=== PATIENT | female | born 1955 | race Caucasian/White ===

== ENCOUNTER 2018-07-25 22:59 | Emergency (ER) | payer OTHER ==
[2018-07-26 00:40] LABS: Urine Blood 2+ (NEG); Urine Glucose 3+ (NEG); Urine Protein TRACE (NEG)
[2018-07-26 00:45] LABS: Urine Bacteria >50 /HPF (<20); Urine Culture Reflex Order REFLEXED; Urine Mucus HEAVY /HPF (NONE SEEN)
--- NOTE | 2018-07-26 01:07 | EDPHYS ---
Physician Documentation [facility] Name: Mary Carmen Rawls Age: 63 yrs Sex: Female : 1955 Arrival Date: 07/25/2018 Time: 23:00 Bed 27 Private MD: Gal King T ED Physician Nico Mccullough HPI: 07/26 00:51 This 63 yrs old Female presents to ER via Ambulatory with complaints of Pain gs With Urination. 00:51 The patient presents with urinary symptoms, dysuria, frequency, urgency. Onset: The gs symptoms/episode began/occurred yesterday. Modifying factors: The symptoms are alleviated by nothing, the symptoms are aggravated by nothing. Associated signs and symptoms: Pertinent negatives: fever, hematuria. Severity of symptoms: At their worst the symptoms were moderate, in the emergency department the symptoms are unchanged. The patient has experienced similar episodes in the past, several times. The patient has not recently seen a physician. Historical: - Allergies: 07/25 23:25 Phenobarbital; mg2 - Home Meds: 23:25 None [Active]; mg2 - PMHx: 23:25 Diabetes - NIDDM; mg2 - PSHx: 23:25 C SECTION; Hysterectomy; HAND SURGERY; mg2 - Immunization history:: Flu vaccine is not up to date. - Social history:: Smoking status: Patient/guardian denies using tobacco, Patient/guardian denies using alcohol, street drugs, IV drugs. - Ebola Screening: : No symptoms or risks identified at this time. ROS: 07/26 00:51 All other systems are negative. gs Exam: 00:51 Head/Face: Normocephalic, atraumatic. Eyes: Pupils equal round and reactive to light, gs extra-ocular motions intact. Lids and lashes normal. Conjunctiva and sclera are non-icteric and not injected. Cornea within normal limits. Periorbital areas with no swelling, redness, or edema. ENT: Nares patent. No nasal discharge, no septal abnormalities noted. Tympanic membranes are normal and external auditory canals are clear. Oropharynx with no redness, swelling, or masses, exudates, or evidence of obstruction, uvula midline. Mucous membranes moist. Neck: Trachea midline, no thyromegaly or masses palpated, and no cervical lymphadenopathy. Supple, full range of motion without nuchal rigidity, or vertebral point tenderness. No Meningismus. Chest/axilla: Normal chest wall appearance and motion. Nontender with no deformity. No lesions are appreciated. Cardiovascular: Regular rate and rhythm with a normal S1 and S2. No gallops, murmurs, or rubs. Normal PMI, no JVD. No pulse deficits. Respiratory: Lungs have equal breath sounds bilaterally, clear to auscultation and percussion. No rales, rhonchi or wheezes noted. No increased work of breathing, no retractions or nasal flaring. Back: No spinal tenderness. No costovertebral tenderness. Full range of motion. Skin: Warm, dry with normal turgor. Normal color with no rashes, no lesions, and no evidence of cellulitis. MS/ Extremity: Pulses equal, no cyanosis. Neurovascular intact. Full, normal range of motion. Neuro: Awake and alert, GCS 15, oriented to person, place, time, and situation. Cranial nerves II-XII grossly intact. Motor strength 5/5 in all extremities. Sensory grossly intact. Cerebellar exam normal. Normal gait. 00:51 Constitutional: The patient appears alert, awake. 00:51 Abdomen/GI: Palpation: mild abdominal tenderness, in the suprapubic area, rebound tenderness, is not appreciated. Vital Signs: 07/25 23:25 BP 162 / 85; Pulse 72; Resp 18; Temp 98.6(O); Pulse Ox 97% on R/A; Weight 77.11 kg; mg2 Height 5 ft. 2 in. (157.48 cm); Pain 10/10; 07/26 01:25 BP 150 / 70; Pulse 70; Resp 18; Pulse Ox 100% on R/A; Pain 0/10; mg2 07/25 23:25 Body Mass Index 31.09 (77.11 kg, 157.48 cm) mg2 MDM: 00:17 Patient medically screened. pm1 00:51 Data reviewed: vital signs, nurses notes. 01:05 Differential diagnosis: urinary tract infection. Response to treatment: the patient's symptoms have markedly improved after treatment, and as a result, I will discharge patient. 07/25 23:41 Order name: Urine Microscopic Only; Complete Time: 00:46 gs 07/25 23:55 Order name: Urine Dipstick--Ancillary (enter results); Complete Time: 00:46 rg2 07/25 23:41 Order name: Urine Dipstick-Ancillary (obtain specimen); Complete Time: 23:47 07/26 00:47 Order name: Urine Culture EDME Administered Medications: 01:16 Drug: KeFLEX 1000 mg Route: PO; mg2 01:22 Follow up: Response: No adverse reaction; Medication administered at discharge. mg2 Disposition: 07/26/18 01:06 Discharged to Home. Impression: Cystitis. - Condition is Stable. - Prescriptions for Keflex 500 mg Oral Capsule - take 1 capsule by ORAL route every 12 hours for 7 days; 14 capsule. - Medication Reconciliation Form, Thank You Letter, Antibiotic Education, Prescription Opioid Use form. - Follow up: Private Physician; When: 2 - 3 days; Reason: Re-evaluation by your physician. Signatures: Dispatcher [employer] EDME Danielito Conteh, JANETTE [employer] CONSULTANT pm1 Nico Mccullough MD MD Harshil Welch RN RN mg2 Corrections: (The following items were deleted from the chart) 01:26 01:06 07/26/2018 01:06 Discharged to Home. Impression: Cystitis. Condition is Stable. mg2 Forms are Medication Reconciliation Form, Thank You Letter, Antibiotic Education, Prescription Opioid Use. Follow up: Private Physician; When: 2 - 3 days; Reason: Re-evaluation by your physician.
--- NOTE | 2018-07-26 01:07 | ER ---
Nurse's Notes [facility] Name: Mary Carmen Rawls Age: 63 yrs Sex: Female : 1955 Arrival Date: 07/25/2018 Time: 23:00 Bed 27 Private MD: Gal King T Diagnosis: Cystitis Presentation: 07/25 23:22 Presenting complaint: Patient states: had burning micturition for 2 days. She had mg2 history of UTI before. She took 3 amoxicillin and azo already. Transition of care: patient was not received from another setting of care. Onset of symptoms was July 24, 2018. Risk Assessment: Do you want to hurt yourself or someone else? Patient reports no desire to harm self or others. Initial Sepsis Screen: Does the patient meet any 2 criteria? No. Patient's initial sepsis screen is negative. Does the patient have a suspected source of infection? No. Patient's initial sepsis screen is negative. Care prior to arrival: None. 23:22 Method Of Arrival: Ambulatory mg2 23:22 Acuity: ANILA 3 mg2 Historical: - Allergies: 23:25 Phenobarbital; mg2 - Home Meds: 23:25 None [Active]; mg2 - PMHx: 23:25 Diabetes - NIDDM; mg2 - PSHx: 23:25 C SECTION; Hysterectomy; HAND SURGERY; mg2 - Immunization history:: Flu vaccine is not up to date. - Social history:: Smoking status: Patient/guardian denies using tobacco, Patient/guardian denies using alcohol, street drugs, IV drugs. - Ebola Screening: : No symptoms or risks identified at this time. Screenin:25 Abuse screen: Denies threats or abuse. Denies injuries from another. Nutritional mg2 screening: No deficits noted. Tuberculosis screening: No symptoms or risk factors identified. Fall Risk None identified. Assessment: 23:54 General: Appears in no apparent distress. comfortable, Behavior is calm, cooperative. mg2 Pain: Complains of pain in suprapubic Pain does not radiate. Pain currently is 10 out of 10 on a pain scale. Quality of pain is described as aching, Pain began gradually, Is intermittent, Alleviated by medications, rest. Neuro: Level of Consciousness is awake, alert, obeys commands, Oriented to person, place, time, situation. Cardiovascular: Capillary refill < 3 seconds Patient's skin is warm and dry. Respiratory: Airway is patent Respiratory effort is even, unlabored, Respiratory pattern is regular, symmetrical. GI: No signs and/or symptoms were reported involving the gastrointestinal system. : Urine is orange colored-she took Azo. EENT: No signs and/or symptoms were reported regarding the EENT system. Derm: Skin is intact, Skin is pink, warm \T\ dry. normal. Musculoskeletal: Circulation, motion, and sensation intact. 07/26 00:07 Reassessment: Patient appears in no apparent distress at this time. Patient and/or mg2 family updated on plan of care and expected duration. Pain level reassessed. Patient is alert, oriented x 3, equal unlabored respirations, skin warm/dry/pink. Vital Signs: 07/25 23:25 BP 162 / 85; Pulse 72; Resp 18; Temp 98.6(O); Pulse Ox 97% on R/A; Weight 77.11 kg; mg2 Height 5 ft. 2 in. (157.48 cm); Pain 10/10; 07/26 01:25 BP 150 / 70; Pulse 70; Resp 18; Pulse Ox 100% on R/A; Pain 0/10; mg2 07/25 23:25 Body Mass Index 31.09 (77.11 kg, 157.48 cm) mg2 ED Course: 07/25 23:00 Patient arrived in ED. ds1 23:00 Gal King MD is Private Physician. ds1 23:22 Harshil Welch, AYANNA is Primary Nurse. mg2 23:24 Triage completed. mg2 23:25 Patient has correct armband on for positive identification. mg2 23:49 No provider procedures requiring assistance completed. Urine collected: clean catch mg2 specimen, orange colored- she took AZO. 23:56 Arm band placed on. mg2 07/26 00:17 Danielito Conteh NP is PHCP. pm1 00:17 Nico Mccullough MD is Attending Physician. pm1 01:25 Patient did not have IV access during this emergency room visit. mg2 Administered Medications: :16 Drug: KeFLEX 1000 mg Route: PO; mg2 :22 Follow up: Response: No adverse reaction; Medication administered at discharge. mg2 Outcome: 01:06 Discharge ordered by . gs 01:25 Discharged to home ambulatory, with family. mg2 :25 Condition: stable 01:25 Discharge instructions given to patient, family, Instructed on discharge instructions, follow up and referral plans. medication usage, Demonstrated understanding of instructions, follow-up care, medications, Prescriptions given X 1. 01:26 Patient left the ED. mg2 Addendum: 07/30/2018 18:36 Addendum: Culture Results: Positive urine culture. Bacteria is resistant to, has i w intermediate sensitivity, or is not tested against prescribed antibiotics. Report given to SAM for further evaluation and then to veneer splicer for follow up with patient. Phone call Attempt #1 pt did not answer, unable to leave voicemail. Signatures: Emiliana Chacko ds1 Pamela Yoder, AYANNA RN iw Danielito Conteh, JANETTE S[employer] INSPECTOR pm1 Nico Mccullough MD MD gs Harshil Welch RN RN mg2
[2018-07-26] MEDS ORDERED: CEPHALEXIN 250 MG CAP ONE (01:19)
[2018-07-26 01:35] VITALS: TEMP 98.6
[2018-07-26 01:36] VITALS: BP 150/70; O2SAT 100
== END 2018-07-26 01:26 | disposition home or self-care (01) ==
LOC: ER 22:59
DX: N30.90 Cystitis, unspecified without hematuria (principal); E11.9 Type 2 diabetes mellitus without complications; Z88.5 Allergy status to narcotic agent
CPT/HCPCS: 81003; 81015; 87077; 87086; 87088; 87186; 99283

== ENCOUNTER 2020-03-31 16:01 | Emergency (ER) | payer OTHER ==
--- OUTSIDE RECORDS SUMMARY | 2020-03-31 16:04 | XMS REPORT ---
:1955 Author Organization [facility] t Address [address] [place] [address] Care Team Providers Name Role Phone Unavailable Unavailable Unavailable Problems Condition Condition Condition Status Onset Resolution Last Treating Co mments Source Name Details Category Date Date Treatment Clinician Date Uncontroll Uncontroll Diagnosis Active [facility] ed type 2 ed type 2 [facility] - diabetes diabetes Memori a mellitus mellitus l [facility] hyperglyce hyperglyce en t [facility] Clinics Elevated Elevated Diagnosis Active [facility] BP without BP without Renuka kes - diagnosis diagnosis Luis Carlos bethany of of l hypertensi hypertensi Ou tpati on on ent Clinics Left-sided Left-sided Problem Active [facility] low back low back [facility] - pain pain Memoria without without l sciatica, sciatica, Outp ati unspecifie unspecifie en t d d Clinics chronicity chronicity Hyperlipid Hyperlipid Diagnosis Active [facility] emia, emia, [facility] - unspecifie unspecifie Me moria d d l hyperlipid hyperlipid Ou tpati emia type emia type ent Clinics Abnormal Abnormal Problem Active [facility] t heart heart [facility] - rhythm rhythm Memoria l [facility] ent Clinics Paresthesi Paresthesi Problem Active [facility] as as [facility] - [facility]oria l [facility] ent Clinics Chronic Chronic Problem Active [facility] diarrhea diarrhea [facility] - [facility] l [facility] Urinary Urinary Problem Active [facility] incontinen incontinen Renuka kes - ce, ce, Memoria unspecifie unspecifie l d type d type [facility] ent Clinics Depression Depression Diagnosis Active [facility] , , [facility] - unspecifie unspecifie Me moria d d l depression depression Ou tpati type type ent Clinics Forgetfuln Forgetfuln Diagnosis Active [facility] ess ess [facility] - Memoria l [facility] Clinics Depression Depression Diagnosis Active [facility] screening screening Luke s - Memoria l [facility] ent Clinics Allergies, Adverse Reactions, Alerts Allergy Allergy Status Severity Reaction(s) Onset Inactive Treating Comm ents Source Name Type Date Date Clinician Phenobar Adverse Active stop [facility] bital Reaction breathing [facility] - [facility] ent Clinics Medications Ordered Filled Start Stop Current Ordering Indication Dosage Frequency Signature Comments Components Source Medication Medication Date Date Medication? Clinician (SIG) Name Name Paroxetine Paroxetine Yes Monica [address] [facility] HCl HCl 4-22 Mill[facility] in the [facility] - 00:00: morning Memoria 00 Outpati ent Clinics Januvia Januvia Yes Monica [address] 1[facility]03 Millender [facility] - [facility]: [facility] Meloxicam Meloxicam 2019- No Monica 1/[address] 1-03 05-03 Millender tablet [facility] - 00:00: 00:00 Memoria 00 :00 Outpati ent Clinics [facility] 2017-11 Yes Monica [address] 2-27 [facility] - 00:[facility]: [facility] Lancets Lancets 2017-11 Yes Monica as [facility] 1-29 Millender directed [facility] - 00:00: (dispense Memoria 00 lancets l formulary Outpati to ent insurance) Clinics Blood Blood 2017-11 Yes Monica as [facility] Glucose Glucose 1-29 [facility] directed [facility] - Monitor Monitor 00:00: (DISPENSE Me moria 00 BLOOD l GLUCOSE Outpati MONITOR ent FORMULARY Clinics TO INSURANCE) Blood Blood 2017-11 Yes Monica as [facility] Glucose Glucose 1-29 [facility]ender directed [facility] - Test Strip Test Strip 00:00: (DISPENSE Memoria 00 BLOOD l GLUCOSE Outpati TEST ent STRIPS Clinics FORMULARY TO INSURANCE) [facility] Yes Monica [address] [facility] Aspirin Aspirin [facility] Procedures This patient has no known procedures. Encounters Start End Encounter Admission Attending Care Care Encounter Source Date/Time Date/Time Type Type Clinicians Facility Department ID 2019-03-01 2019-03-01 Outpatient Keaton Bolanos [id number] [address] 10:40:00 10:40:00 [facility] Medicine [facility] 2018-11-16 2018-11-16 [facility] [id number] 14:07:00 14:07:00 [facility] 2018-11-12 2018-11-12 [facility] [id number] 10:45:00 10:45:00 [facility] 2018-11-05 2018-11-05 [facility] [id number] 13:15:00 13:15:00 [facility] Outpati ent Clinics 2018-10-17 2018-10-17 [facility] [id number] 21:58:00 21:58:00 [facility] Results This patient has no known results.
[2020-03-31] MEDS ORDERED: NA CHLORIDE 0.9% 1,000 ML ONE (19:22)
[2020-03-31 19:24] LABS: Urine Blood NEGATIVE (NEG); Urine Glucose 2+ (NEG); Urine Protein NEGATIVE (NEG); Urine Specific Gravity 1.015 (1.005-1.030)
[2020-03-31 19:43] LABS: Absolute Lymphocytes (CBC) 4.7 K/uL (0.7-4.9); Basophils % 0.6 % (0-1.3); Hematocrit 46.1 % (36.0-45.0); Lymphocytes % 45.7 % (15.3-44.8); RBC Red Blood Cell Count 4.71 M/uL (3.86-4.86)
--- NOTE | 2020-03-31 20:03 | ER ---
Nurse's Notes [facility] Name: Mary Carmen Rawls Age: 64 yrs Sex: Female : 1955 Arrival Date: 03/31/2020 Time: 16:13 Bed 20 Private MD: Gal King T Diagnosis: Unspecified hemorrhoids;Hyperglycemia, unspecified;Personal history of urinary (tract) infections;Candidiasis of vulva and vagina Presentation: 03/31 16:14 Chief complaint: Patient states: hemmorrhoid pain x 4 days. Have used OTC meds. Reports sv yeast infection as well. Coronavirus screen: Proceed with normal triage. Patient denies a cough. Patient denies shortness of breath or difficulty breathing. Patient denies measured and/or subjective temperature greater than 100.4F prior to today's visit. Patient denies travel on a cruise ship or to a country [facility] currently lists as an affected area. Patient denies contact with known and/or suspected case of COVID-19. Ebola Screen: No symptoms or risks identified at this time. Risk Assessment: Do you want to hurt yourself or someone else? Patient reports no desire to harm self or others. Onset of symptoms was March 27, 2020. 16:14 Method Of Arrival: Ambulatory sv 16:14 Acuity: ANILA 4 sv 16:16 Initial Sepsis Screen: Does the patient meet any 2 criteria? No. Patient's initial sv sepsis screen is negative. Does the patient have a suspected source of infection? No. Patient's initial sepsis screen is negative. Triage Assessment: 16:18 General: Appears in no apparent distress. uncomfortable, Behavior is calm, cooperative, sv appropriate for age. Pain: Complains of pain in anus. Neuro: Level of Consciousness is awake, alert, obeys commands, Gait is steady. Respiratory: Respiratory effort is even, unlabored. Historical: - Allergies: 16:16 Phenobarbital; sv - PMHx: 16:16 Diabetes - NIDDM; sv - PSHx: 16:16 C SECTION; Hysterectomy; HAND SURGERY; sv - Immunization history:: Adult Immunizations up to date. - Social history:: Smoking status: Patient denies any tobacco usage or history of. Screenin:30 Abuse screen: Denies threats or abuse. Nutritional screening: No deficits noted. vc Tuberculosis screening: No symptoms or risk factors identified. Fall Risk None identified. Assessment: 18:15 General: Appears in no apparent distress. uncomfortable, Behavior is calm, cooperative, vc appropriate for age. Pain: Complains of pain in anus Pain does not radiate. Pain currently is 10 out of 10 on a pain scale. Neuro: Level of Consciousness is awake, alert, obeys commands, Oriented to person, place, time, situation. Cardiovascular: Capillary refill < 3 seconds Patient's skin is warm and dry. Respiratory: Airway is patent Respiratory effort is even, unlabored, Respiratory pattern is regular. GI: Reports rectal bleeding, hemorrhoids, Pain is 10 out of 10 on a pain scale. : No signs and/or symptoms were reported regarding the genitourinary system. EENT: No signs and/or symptoms were reported regarding the EENT system. Derm: Skin is intact, is healthy with good turgor, Skin temperature is warm. Musculoskeletal: Circulation, motion, and sensation intact. Range of motion: intact in all extremities. 19:15 Reassessment: Patient appears in no apparent distress at this time. Patient and/or vc family updated on plan of care and expected duration. Pain level reassessed. Patient is alert, oriented x 3, equal unlabored respirations, skin warm/dry/pink. 20:12 Reassessment: Patient appears in no apparent distress at this time. Patient and/or vc family updated on plan of care and expected duration. Pain level reassessed. Patient is alert, oriented x 3, equal unlabored respirations, skin warm/dry/pink. Vital Signs: 16:16 BP 131 / 81; Pulse 88; Resp 16; Temp 99.2; Pulse Ox 99% ; Weight 73.94 kg; Height 5 ft. sv 2 in. (157.48 cm); 19:00 BP 138 / 81; Pulse 67; Resp 18; Pulse Ox 100% on R/A; vc 20:00 BP 145 / 79; Pulse 64; Resp 17; Pulse Ox 98% on R/A; vc 16:16 Body Mass Index 29.81 (73.94 kg, 157.48 cm) sv ED Course: 16:13 Patient arrived in ED. mr 16:14 Gal King MD is Private Physician. mr 16:15 Triage completed. sv 16:16 Arm band placed on. sv 17:52 Leola Edwards, AYANNA is Primary Nurse. vc 17:56 Fei Enrique MD is Attending Physician. [facility] 19:15 Patient has correct armband on for positive identification. Pulse ox on. NIBP on. vc 20:34 No provider procedures requiring assistance completed. IV discontinued, intact, vc bleeding controlled, No redness/swelling at site. Pressure dressing applied. Administered Medications: 19:20 Drug: NS 0.9% 1000 ml Route: IV; Rate: 1000 ml; Site: right antecubital; vc 20:40 Follow up: IV Status: Completed infusion; IV Intake: 1000ml vc Intake: 20:40 IV: 1000ml; Total: 1000ml. vc Outcome: 20:01 Discharge ordered by . [facility] 20:34 Discharged to home ambulatory. vc 20:34 Condition: good 20:34 Discharge instructions given to patient, Instructed on discharge instructions, follow up and referral plans. medication usage, Demonstrated understanding of instructions, follow-up care, medications, Prescriptions given X 6 20:40 Patient left the ED. vc Signatures: Claire Castellon RN RN GriffithPatricia Leola Edwards, AYANNA RN Fei Enrique MD MD [facility] Corrections: (The following items were deleted from the chart) 16:19 16:16 Pulse 88bpm; Resp 16bpm; Pulse Ox 99%; Temp 99.2F; 73.94 kg; Height 5 ft. 2 in.; sv BMI: 29.8; sv
--- NOTE | 2020-03-31 20:03 | EDPHYS ---
Physician Documentation [facility] Name: Mary Carmen Rawls Age: 64 yrs Sex: Female : 1955 Arrival Date: 03/31/2020 Time: 16:13 Bed 20 Private MD: Gal King T ED Physician Fei Enrique HPI: 03/31 18:25 This 64 yrs old Female presents to ER via Ambulatory with complaints of mh7 Hemorrhoids. 18:25 The patient presents to the emergency department with pain in the rectal area, that is mh7 moderate. 18:28 Onset: The symptoms/episode began/occurred 4 day(s) ago. Context: the patient has a mh7 known history of hemorrhoids. Modifying factors: The symptoms are alleviated by nothing, The symptoms are aggravated by bowel movement, sitting position. Associate signs and symptoms: Pertinent negatives: abdominal pain, constipation, diarrhea, dysuria, fever, lower GI bleeding, vomiting. The patient has experienced similar episodes in the past, multiple times. Patient states that she has had a flare up of hemorrhoids that started four days ago. She also complains of a yeast infection. She denies any rectal bleeding, fever, abdominal pain, nausea, vomiting or dysuria.. Historical: - Allergies: 16:16 Phenobarbital; sv - PMHx: 16:16 Diabetes - NIDDM; sv - PSHx: 16:16 C SECTION; Hysterectomy; HAND SURGERY; sv - Immunization history:: Adult Immunizations up to date. - Social history:: Smoking status: Patient denies any tobacco usage or history of. ROS: 18:28 Constitutional: Negative for fever, chills, and weight loss, Eyes: Negative for injury, mh7 pain, redness, and discharge, ENT: Negative for injury, pain, and discharge, Neck: Negative for injury, pain, and swelling, Cardiovascular: Negative for chest pain, palpitations, and edema, Respiratory: Negative for shortness of breath, cough, wheezing, and pleuritic chest pain, Back: Negative for injury and pain, MS/Extremity: Negative for injury and deformity, Skin: Negative for injury, rash, and discoloration, Neuro: Negative for headache, weakness, numbness, tingling, and seizure, Psych: Negative for depression, anxiety, suicide ideation, homicidal ideation, and hallucinations, Allergy/Immunology: Negative for hives, rash, and allergies, Endocrine: Negative for neck swelling, polydipsia, polyuria, polyphagia, and marked weight changes, Hematologic/Lymphatic: Negative for swollen nodes, abnormal bleeding, and unusual bruising. Exam: 18:28 Constitutional: This is a well developed, well nourished patient who is awake, alert, mh7 and in no acute distress. Head/Face: Normocephalic, atraumatic. Eyes: Pupils equal round and reactive to light, extra-ocular motions intact. Lids and lashes normal. Conjunctiva and sclera are non-icteric and not injected. Cornea within normal limits. Periorbital areas with no swelling, redness, or edema. ENT: Nares patent. No nasal discharge, no septal abnormalities noted. Tympanic membranes are normal and external auditory canals are clear. Oropharynx with no redness, swelling, or masses, exudates, or evidence of obstruction, uvula midline. Mucous membranes moist. Neck: Trachea midline, no thyromegaly or masses palpated, and no cervical lymphadenopathy. Supple, full range of motion without nuchal rigidity, or vertebral point tenderness. No Meningismus. Chest/axilla: Normal chest wall appearance and motion. Nontender with no deformity. No lesions are appreciated. Cardiovascular: Regular rate and rhythm with a normal S1 and S2. No gallops, murmurs, or rubs. Normal PMI, no JVD. No pulse deficits. Respiratory: Lungs have equal breath sounds bilaterally, clear to auscultation and percussion. No rales, rhonchi or wheezes noted. No increased work of breathing, no retractions or nasal flaring. 18:28 Back: No spinal tenderness. No costovertebral tenderness. Full range of motion. 18:28 Skin: Warm, dry with normal turgor. Normal color with no rashes, no lesions, and no evidence of cellulitis. MS/ Extremity: Pulses equal, no cyanosis. Neurovascular intact. Full, normal range of motion. Neuro: Awake and alert, GCS 15, oriented to person, place, time, and situation. Cranial nerves II-XII grossly intact. Motor strength 5/5 in all extremities. Sensory grossly intact. Cerebellar exam normal. Normal gait. Psych: Awake, alert, with orientation to person, place and time. Behavior, mood, and affect are within normal limits. 18:28 Abdomen/GI: Inspection: abdomen appears normal, Bowel sounds: normal, in all quadrants, Palpation: abdomen is soft and non-tender, in all quadrants, Rectal exam: rectal tone normal, Stool: brown, guaiac negative, hemorrhoid(s), external, with pain, without bleeding, without inflammation, without thrombosis, mass, is not appreciated, swelling, is not appreciated, tenderness, that is moderate, fecal impaction, is not appreciated, the exam is chaperoned by the nurse, Indicators: McBurney's point is not tender, Agee's sign is negative, Rovsing's sign is negative, Obturator sign is negative, Psoas sign is negative, Liver: no appreciated palpable abnormalities, Hernia: not appreciated. 18:28 : CVA tenderness, is absent, Pelvic Exam: The exam is refused by the patient/guardian. The risks and consequences are understood by the patient, Bladder: is normal. Vital Signs: 16:16 BP 131 / 81; Pulse 88; Resp 16; Temp 99.2; Pulse Ox 99% ; Weight 73.94 kg; Height 5 ft. sv 2 in. (157.48 cm); 19:00 BP 138 / 81; Pulse 67; Resp 18; Pulse Ox 100% on R/A; vc 20:00 BP 145 / 79; Pulse 64; Resp 17; Pulse Ox 98% on R/A; vc 16:16 Body Mass Index 29.81 (73.94 kg, 157.48 cm) sv MDM: 17:56 Patient medically screened. [facility] 19:57 Differential diagnosis: hemorrhoids, fissure, abscess, pilonidal cyst, condyloma, UTI, mh7 Hyperglycemia, DKA, Vaginal candidias. Data reviewed: vital signs, nurses notes, lab test result(s), CBC, electrolytes, urinalysis. Data interpreted: air sampling and monitoring: rate is 88 beats/min, rhythm is normal sinus rhythm, regular, Interpretation: normal rate, normal rhythm, Pulse oximetry: on room air is 99 %. Interpretation: normal. Counseling: I had a detailed discussion with the patient and/or guardian regarding: the historical points, exam findings, and any diagnostic results supporting the discharge/admit diagnosis, lab results, the need for outpatient follow up. 04/01 07:57 ED course: Well appearing, NAD, VSS, no focal neurological deficits. Discussed all test [facility] results and findings with the patient and answered all of her questions. She requested to be discharged from the ED. She will follow up with her doctor but will return to the ED if worsening of symptoms or other concerns.. 03/31 18:54 Order name: CBC with Diff; Complete Time: 19:53 mh7 03/31 18:54 Order name: BMP; Complete Time: 19:36 mh7 03/31 18:25 Order name: Accucheck; Complete Time: 18:56 mh7 03/31 19:00 Order name: Urine Dipstick--Ancillary (enter results); Complete Time: 19:26 tt3 03/31 19:02 Order name: Glucose, Ancillary Testing; Complete Time: 19:26 EDMS 03/31 18:35 Order name: Urine Dipstick-Ancillary (obtain specimen); Complete Time: 19:02 mh7 03/31 18:54 Order name: Saline Lock; Complete Time: 19:20 mh7 Administered Medications: 03/31 19:20 Drug: NS 0.9% 1000 ml Route: IV; Rate: 1000 ml; Site: right antecubital; vc 20:40 Follow up: IV Status: Completed infusion; IV Intake: 1000ml vc Disposition: 03/31/20 20:01 Discharged to Home. Impression: Unspecified hemorrhoids, Hyperglycemia, unspecified, Personal history of urinary (tract) infections, Candidiasis of vulva and vagina. - Condition is Stable. - Discharge Instructions: High-Fiber Diet, Hemorrhoids, Hyperglycemia, Vaginal Yeast Infection, Adult, Urinary Tract Infection, Adult, [id number]. - Prescriptions for Colace 100 mg Oral Tablet - take 1 tablet by ORAL route every 12 hours; 14 tablet. Keflex 500 mg Oral Capsule - take 1 capsule by ORAL route every 12 hours for 7 days; 14 capsule. Tylenol- Codeine #3 300-30 mg Oral Tablet - take 1 tablet by ORAL route every 6 hours As needed; 15 tablet. Glipizide 5 mg Oral Tablet - take 1 tablet by ORAL route once daily before a meal; 20 tablet. Anusol- HC 25 mg Rectal Suppository - insert 1 suppository by RECTAL route every 12 hours As needed; 10 suppository. Miconazole 7 2 % Vaginal Cream - insert 1 application by VAGINAL route At bedtime for 7 days; 45 gram. - Medication Reconciliation Form, Thank You Letter, Antibiotic Education, Prescription Opioid Use form. - Follow up: Private Physician; When: 2 - 3 days; Reason: Worsening of condition, Re-evaluation by your physician. - Problem is an acute exacerbation. - Symptoms have improved. Signatures: Dispatcher [employer] EDClaire Ramos RN RN sv Calcote, Vanessa, RN RN vc Holmes, Maurice, MD MD mh7 Corrections: (The following items were deleted from the chart) 20:40 20:01 03/31/2020 20:01 Discharged to Home. Impression: Unspecified hemorrhoids; vc Hyperglycemia, unspecified; Personal history of urinary (tract) infections; Candidiasis of vulva and vagina. Condition is Stable. Forms are Medication Reconciliation Form, Thank You Letter, Antibiotic Education, Prescription Opioid Use. Follow up: Private Physician; When: 2 - 3 days; Reason: Worsening of condition, Re-evaluation by your physician. Problem is an acute exacerbation. Symptoms have improved. mh7
[2020-03-31 20:52] VITALS: TEMP 99.2
[2020-03-31 20:53] VITALS: BP 145/79; O2SAT 98
== END 2020-03-31 20:40 | disposition home or self-care (01) ==
LOC: ER 16:01
DX: E11.65 Type 2 diabetes mellitus with hyperglycemia (principal); B37.3 Candidiasis of vulva and vagina; Z87.440 Personal history of urinary (tract) infections; Z88.5 Allergy status to narcotic agent
CPT/HCPCS: 85025; 80048; 36415; 82947 ×2; 81003; 96360; 99283; J7030